=== PATIENT | female | born 1970 | race Caucasian/White ===

== ENCOUNTER 2017-06-24 22:53 | Emergency (ER) | payer BC, OTHER ==
[~2017-06-24] VITALS: Ht 160 cm; Wt 61.6 kg
[~2017-06-24 22:53] MED LIST: CLIN150 PO; PRED20 PO; SUDA30TA2; XYZA5TAB2 PO
[2017-06-24 22:57] VITALS: BP 143/66; PULSE 117; RESP 18; TEMP 97.9; O2SAT 99
[2017-06-24] MEDS ORDERED: ALPR.5 PO (23:04)
[2017-06-24] MEDS ORDERED: CYCL10TA PO (23:04)
[2017-06-24] MEDS ORDERED: TRAM50TA PO (23:04)
--- NOTE | 2017-06-24 23:29 | PD ---
HPI Chief Complaint: Laceration/Skin Injury Time Seen by Provider: 23:03 Travel History International Travel<30 days: No Contact w/Intl Traveler<30days: No Traveled to known affect area: No History of Present Illness HPI The patient is a 47-year-old right-hand dominant female that sat her left hand on some broken glass at 7 PM tonight. She sustained a laceration of the base of the third digit, ulnarly on the proximal phalanx. 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 The bleeding has stopped now. Her last platelet count was 179,000 on the 14th of this month. [facility] Past Medical History Blood Disorders: Yes (ITP) Anxiety: Yes Depression: Yes Cancer: No Cardiovascular Problems: No Diminished Hearing: No Endocrine: No Genitourinary: No Immune Disorder: No Implanted Vascular Access Dvce: No Musculoskeletal: Yes Neurologic: Yes Psychiatric: Yes Reproductive: No Respiratory: Yes Migraines: Yes Shingles: Yes Tetanus Vaccination: Unknown Influenza Vaccination: No ?: Not LMP: 2017 : 2 Para: 1 Past Surgical History Gynecologic Surgery: Yes (CRYOSURGERY, CONIZATION, BIOPSY, LAPAROSCOPY) Other Surgery: Yes Social History Alcohol Use: Yes (OCC WINE, BEER) Tobacco Use: Yes (SOCIAL) Substance Use: No Allergies-Medications (Allergen,Severity, Reaction): Coded Allergies: Sulfa (Sulfonamide Antibiotics) (Unverified Allergy, Intermediate, HIVES, 06/24/17) Reported Meds & Prescriptions Reported Meds & Active Scripts Active Reported Flexeril (Cyclobenzaprine HCl) 10 Mg Tab 10 Mg PO TID Tramadol (Tramadol HCl) 50 Mg Tab 50 Mg PO HS Xanax (Alprazolam) 0.5 Mg Tab 0.5 Mg PO HS Review of Systems Except as stated in HPI: all other systems reviewed are Neg Physical Exam Narrative GENERAL: Well-nourished, well-developed patient. SKIN: Focused skin assessment warm/dry. There is a 1 cm laceration at the base of the left third digit, proximal phalanx that is encrusted with wound seal. There is no active bleeding at this time despite rather vigorous manipulation of the finger. HEAD: Normocephalic. EYES: No scleral icterus. No injection or drainage. NECK: Supple, trachea midline. No JVD or lymphadenopathy. CARDIOVASCULAR: Regular rate and rhythm without murmurs, gallops, or rubs. RESPIRATORY: Breath sounds equal bilaterally. No accessory muscle use. GASTROINTESTINAL: Abdomen soft, non-tender, nondistended. MUSCULOSKELETAL: No cyanosis, or edema. BACK: Nontender without obvious deformity. No CVA tenderness. Data Data Last Documented VS Vital Signs Date Time Temp Pulse Resp B/P (MAP) Pulse Ox O2 Delivery O2 Flow Rate FiO2 06/24/17 22:57 97.9 117 18 143/66 (91) 99 MDM Medical Decision Making Medical Screen Exam Complete: Yes Emergency Medical Condition: Yes Medical Record Reviewed: Yes Differential Diagnosis Laceration needing suturing, laceration not needing suturing, ITP Narrative Course A compressive bandage was put on the laceration. It is difficult laceration to get to. This laceration would not normally be sewn. Consideration of suturing was given because of her ITP in because of her persistent bleeding. However, despite vigorous manipulation of that finger it did not bleed here in the emergency department. We are putting a compressive bandage on the wound. We also gave her another packet of QuickSeal so that she will have someone home should the bleeding started. She is welcome to return to emergency department if she starts bleeding again. She is to not use the left hand, keep it elevated tonight to avoid bleeding. Diagnosis Primary Impression: Finger laceration Additional Impression: History of ITP Additional Instructions: Keep the left hand elevated and do not use your left hand tonight. Do not wash your hands in the next few days. If you have bleeding of course return to the emergency department. Med/Other Pt SpecificInfo: No Change to Meds Disposition: 01 DISCHARGE HOME Condition: Stable Thierno Do MD Jun 24, 2017 23:29
== END 2017-06-24 23:58 | disposition home or self-care (01) ==
LOC: PHED 22:53
DX: S61.213A Laceration without foreign body of left middle finger without damage to nail, initial encounter (principal); D69.3 Immune thrombocytopenic purpura
CPT/HCPCS: 99282